=== PATIENT | male | born 2000 | race Caucasian/White ===

== ENCOUNTER → 2020-11-07 14:30 | Outpatient (CLI) | payer OTHER, SELFPAY ==
[2020-11-07] MEDS: COVID-19 VACC, Ad26(JANSSEN)/PF 0.5 ML IM (14:38)
== END ==
PROVIDERS: PCP Family Medicine; Visit Provider Internal Medicine
DX: Z23 Encounter for immunization (principal)
CPT/HCPCS: 0031A; 91303

== ENCOUNTER 2020-11-13 17:23 | Emergency (ER) | payer OTHER, SELFPAY ==
[2020-11-13 17:51] VITALS: BP 117/74; PULSE 72; RESP 13; TEMP 36.9; O2SAT 100
[2020-11-13 18:00] VITALS: BMI 17.1
[2020-11-13] MEDS: methylPREDNISolone 125 MG/2 ML VIAL IM (18:36)
[2020-11-13 19:04] VITALS: BP 142/81; RESP 16; O2SAT 97
--- NOTE | 2020-11-14 02:50 | ED.SKABFB ---
HPI - Skin/Abscess/Foreign Bdy General Chief complaint: Skin/Abscess/Foreign Body Stated complaint: HIVES Time Seen by Provider: 11/13/20 18:07 History of Present Illness HPI narrative: 20-year-old gentleman with a history of anxiety and depression who was hiking with his father yesterday in hiking boots addendum long pants and long sleeve shirt. By 7:00 p.m. yesterday he had noticed some itching in his feet and then noticed hives over his feet spreading of his lower legs. He took some Benadryl and symptoms seem to improve significantly. By this afternoon symptoms are returning and now he has upper extremity involvement from the elbows distal with quite a bit of hives around the left elbow. He has no involvement of his hands, face her scalp, torso or abdomen and no rash in the groin area. Related Data Previous Rx's Medication Instructions Recorded bupropion HCl 150 mg 24 hr tablet, 300 mg PO QAM #60 tab 09/19/18 extended release prednisone 20 mg PO DAILY #5 tab 11/13/20 prednisone 20 mg PO DAILY #5 tab 11/13/20 Allergies Allergy/AdvReac Type Severity Reaction Status Date / Time No Known Drug Allergies Allergy Verified 11/13/20 16:48 Review of Systems Review of Systems Narrative: Pertinent positive and negative findings as per HPI Remainder of review of systems is otherwise unremarkable for Constitutional: Fevers, chills, weakness ENT: No sore throat, neck pain, ear pain CV: Chest pain, palpitations, Respiratory: Cough, wheeze, dyspnea GI: Nausea, vomiting, diarrhea, : Dysuria, hematuria, Patient History Surgical History History of third molar tooth extraction Social History Smoking Status: Current every day smoker Smoking Status: Current every day smoker Exam Narrative Exam Narrative: General: Alert appropriate in no acute distress H EENT: No tongue swelling, no pharyngeal abnormalities, no cervical adenopathy Respiratory: Able to speak in full sentences, no obvious respiratory distress, no wheezes rales or rhonchi Skin: Partially resolved hives and erythema over both lower extremities with involvement of forearms and left elbow. Neurovascularly intact Neurologic: Grossly intact no obvious asymmetries or abnormalities Psych, appropriate insight and affect, cooperative Initial Vital Signs Initial Vital Signs: Vital Signs Temperature 98.4 F 11/13/20 17:51 Pulse Rate 72 11/13/20 17:51 Respiratory Rate 13 11/13/20 17:51 Blood Pressure 117/74 11/13/20 17:51 Pulse Oximetry 100 11/13/20 17:51 Course Orders Ordered: Discontinued Medications Methylprednisolone (Methylprednisolone 125 Mg/2 Ml Vial) 125 mg IM NOW ONE Stop: 11/13/20 18:25 Last Admin: 11/13/20 18:36 Dose: 125 mg Documented by: [place] Vital Signs Vital signs: Vital Signs - 8 hr 11/13/20 19:04 Respiratory Rate 16 Blood Pressure 142/81 H Pulse Oximetry 97 MDM - Skin/Abscess/Foreign Bdy MDM Narrative Medical decision making narrative: 20-year-old gentleman with what appears to be an acute allergic reaction involving hives to the upper and lower extremities sparing torso and head. History of hiking yesterday is interesting however all of the areas involved were completely covered at the time. He has had no new medications. He does note the Benadryl significantly helps the hives. He is given a shot of Solu-Medrol in the emergency department with significant improvement. Recommended 5 additional days of 20 mg of prednisone and Claritin daily for the next week with as needed use of Benadryl. You will return to the emergency department if symptoms are worsening or there is any signs or symptoms of pulmonary involvement. Discharge Plan Departure Patient Disposition: Home Clinical Impression: Allergic reaction Qualifiers: Encounter type: initial encounter Qualified Code(s): T78.40XA - Allergy, unspecified, initial encounter Instructions: DI for Adverse Drug Reaction -- Allergic Activity Restrictions/Additional Instructions: Thank you for coming in today You are having an acute allergic reaction. Frequently, we never quite figure out what causes this. I have given you a shot of steroids in the ER and would like you to continue 20mg of prednisone orally for the next 5 days. 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 If you are itchy at night, you can continue to use benadryl. If you are worse, either with rashes, cough, wheeze, swelling in your throat or new/worsening symptoms, please return to the ER. Prescriptions: New prednisone 20 mg tablet 20 mg PO DAILY Qty: 5 RF: 0 prednisone 20 mg tablet 20 mg PO DAILY Qty: 5 RF: 0 No Action bupropion HCl [Wellbutrin XL] 150 mg tablet extended release 24 hr 300 mg PO QAM Qty: 60 RF: 2 Referrals: Rei Abbasi MD [Primary Care Provider] -
== END 2020-11-13 19:05 | disposition home or self-care (01) ==
PROVIDERS: Emergency Provider Emergency Medicine; PCP Family Medicine
DX: T78.40XA Allergy, unspecified, initial encounter (principal)
CPT/HCPCS: 96372; 99283; J2930

== ENCOUNTER 2022-04-12 06:17 | Emergency (ER) | payer OTHER, SELFPAY ==
[2022-04-12 06:31] VITALS: BP 123/61; PULSE 72; RESP 18; O2SAT 99; BMI 17.3
--- NOTE | 2022-04-12 06:40 | ED.WOUNDLAC ---
HPI - Wound/Laceration General Chief Complaint: Wound/Laceration Stated Complaint: cut thumb left hand Time Seen by Provider: 04/12/22 06:30 Source: patient Mode of arrival: Ambulatory History of Present Illness HPI narrative: 32-year-old male who is here for evaluation of a cut to the back of his left thumb. 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 He covered with a bandage and came to the emergency department. Related Data Allergies Allergy/AdvReac Type Severity Reaction Status Date / Time No Known Drug Allergies Allergy Verified 04/12/22 06:31 Review of Systems Musculoskeletal Musculoskeletal: Reports system reviewed and no additional complaints, except as documented Integumentary/Breasts Skin/Breast: Reports system reviewed and no additional complaints, except as documented Neurologic Neurologic: Reports system reviewed and no additional complaints, except as documented Patient History Medical History Healthy adult Social History Smoking Status: Never smoker Smoking Status: Never smoker alcohol intake frequency: a few times a week Substance Use Type: marijuana Exam Initial Vital Signs Initial Vital Signs: Vital Signs Pulse Rate 72 04/12/22 06:31 Respiratory Rate 18 04/12/22 06:31 Blood Pressure 123/61 04/12/22 06:31 Pulse Oximetry 99 04/12/22 06:31 Oxygen Delivery Method 04/12/22 06:31 [facility] Head: normal to inspection and normocephalic Skin Other: Patient with a 2 cm superficial cut that goes across the dorsum of the left thumb. Does start approximately [address] the thumb nail and extends back through the base of the nail. There is some oozing from the area. The laceration does not gape open. There is no subungual hematoma. Neuro Sensory Exam: no sensory deficits noted Extrem Other: Full range of motion IP joint left thumb Procedures Laceration Repair Laceration 1: Site: other (Left thumb) Size (cm): 2 Description: linear Depth: simple, single layer Skin layer closed with: dermabond Course Vital Signs Vital signs: Vital Signs - 8 hr 04/12/22 06:31 Pulse Rate 72 Respiratory Rate 18 Blood Pressure 123/61 Pulse Oximetry 99 Oxygen Delivery Method Room Air MDM - Wound/Laceration MDM Narrative Medical decision making narrative: Superficial cut to the dorsum of the left thumb that was closed with Dermabond and Steri-Strips. There is no subungual hematoma. No indication for stitches. No tendon injury. No indication for antibiotics. Will discharge home with care instructions and return precautions. He expressed understanding and agreement. Discharge Plan Departure Patient Disposition: Home Clinical Impression: Laceration Instructions: DI for Minor Laceration Activity Restrictions/Additional Instructions: The bandage and the gauze that was placed over top of the cut can be removed in the next couple hours. You can also replace it if they are still some oozing from the area. The skin glue and the Steri-Strips that were placed should stay on for the next 7-10 days. You can trim the Steri-Strips as needed. You can wash her hands like normal. Do not soak her hand in anything until the wound is healed. Do wear gloves while you are at work. Return to the emergency department for any new or worsening symptoms.
== END 2022-04-12 06:48 | disposition home or self-care (01) ==
PROVIDERS: Emergency Provider Emergency Medicine
DX: S61.012A Laceration without foreign body of left thumb without damage to nail, initial encounter (principal); W26.0XXA Contact with knife, initial encounter
CPT/HCPCS: 12001; 99281; 99282